=== PATIENT | male | born 1930 | race Caucasian/White ===

== ENCOUNTER 2018-04-26 01:49 | Inpatient (IN) | payer MEDICARE ==
[2018-04-26 02:24] LABS: #Eosinphils 0.1 thou/uL (0.0-0.7); #Lymphocytes 0.6 thou/uL (1.20-3.40); #Monocytes 0.4 thou/uL (0.11-0.59); #Neutrophils 2.9 thou/uL (1.40-6.50); %Basophils 0.1 % (0.0-1.0); %Eosinophils 2.5 % (0.0-10.0); %Lymphocytes 15.8 % (21.0-51.0); %Monocytes 9.8 % (0.0-10.0); %Neutrophils 71.8 % (42.0-75.0); Hemoglobin 9.7 g/dL (14.0-18.0); Mean Corpuscular HGB CONC 30.3 g/dL (32.0-36.0); Mean Corpuscular Hemoglobin 28.4 pg (27.0-31.0); Mean Platelet Volume 7.7 fL (7.4-10.4); Platelet Count 299 thou/uL (130-400); White Blood Cell (WBC) Count 4.1 thou/uL (4.8-10.8)
[2018-04-26 02:30] LABS: INR-International Normal Ratio 1.2; PTT 41.1 SEC (22.9-36.1)
[2018-04-26 02:44] LABS: Acetaminophen Less than 6.0 mcg/mL (10.0-30.0); Alcohol Less than 10 mg/dL (Less than 10); CK (CPK) 48 U/L (30-200); Salicylate Less than 8.0 mg/dL (15.0-30.0)
[2018-04-26 02:46] LABS: ALT (SGPT) 18 U/L (8-55); AST (SGOT) 28 U/L (5-34); Albumin 3.4 g/dL (3.4-4.8); Alkaline Phosphatase 68 U/L (40-150); Anion Gap 12 mmol/L (10-20); BUN (Urea Nitrogen) 14 mg/dL (8.4-25.7); Bilirubin, Total 0.7 mg/dL (0.2-1.2); Calc. Creatinine Clearance 0 mL/min (70-130); Calcium 8.9 mg/dL (7.8-10.44); Carbon Dioxide 27 mmol/L (23-31); Chloride 106 mmol/L (98-107); Estimated GFR-MDRD 87; Globulin 2.7 g/dL (2.4-3.5); Glucose 97 mg/dL (83-110); Potassium 4.3 mmol/L (3.5-5.1); Protein, Total 6.1 g/dL (5.8-8.1); Sodium 141 mmol/L (136-145)
[2018-04-26 03:06] LABS: CKMB 3.2 ng/mL (0-6.6)
--- NOTE | 2018-04-26 07:32 | RAD ---
SINGLE VIEW OF THE CHEST: Comparison: 04-26-10 History: Altered mental status. FINDINGS: Single view of the chest shows an enlarged cardiomediastinal silhouette. The pacemaker is unchanged i n position. Opacity is seen projecting over the right thorax which likely represents a moderate layer ing pleural effusion. IMPRESSION: Moderate right pleural effusion. POS: [facility]
[2018-04-26 07:34] LABS: Bilirubin Negative (Negative); Blood, Urine Negative (Negative); Clarity CLEAR (Clear); Glucose, Urine (Dipstick) Negative (Negative); Leukocyte Negative (Negative); Nitrite Negative (Negative); Protein, Urine (Dipstick) Negative (Neg-Trace); Specific Gravity, Urine 1.037 (1.002-1.036)
[2018-04-26 07:46] LABS: Medtox Reader # READER 1
[2018-04-26] MEDS ORDERED: ISOVUE-370 76%-LOCM 1 ML ONE (07:46)
[2018-04-26 07:47] LABS: Amphetamine Not Detected (NotDetected); Barbiturates Screen Not Detected (NotDetected); Benzodiazepine Screen Detected (NotDetected); Cocaine Metabolite Screen Not Detected (NotDetected); Medtox Control Line Valid? VALID (VALID); Methadone Not Detected (NotDetected); Methamphetamine Not Detected (NotDetected); Opiate Screen Not Detected (NotDetected); Oxycodone Screen Not Detected (NotDetected); Phencyclidine (PCP) Not Detected (NotDetected); THC/Cannabinoid Screen Not Detected (NotDetected); Tricyclic Screen Not Detected (NotDetected)
--- NOTE | 2018-04-26 08:14 | CT ---
PRELIMINARY REPORT/[facility]/EMERGENTY AFTER-HOURS PROCEDURE CT Head Without Contrast EXAM DATE/TIME: 04/26/2018 2:58 AM CLINICAL HISTORY: 88 years old, male; Injury or trauma; Fall; Initial encounter; Abrasion; Not specified; Patient HX: E r 9; M88 presents to the ed via ems for evaluation of fall from a seated position while [facility] staff was getting him out of bed to change his briefs around 01: 30. Ems reports PT. Is feeling fatig ued but took sleeping meds before bed. PT. Arrived on backboard and c-collar in place. Per ems, PT di d not have loc. Pt's baseline mental status is unknown; PT is not answering questions in the ed at th is time. TECHNIQUE: Axial computed tomography images of the head/brain without contrast. COMPARISON: No relevant prior studies available. FINDINGS: Brain: Scattered areas of hypoattenuation, likely chronic small vessel ischemic change, demyelination , or gliosis. There is parenchymal atrophy. Ventricles: Normal. Bones/joints: Normal. Sinuses: Minimal ethmoid and right maxillary sinus disease. Mastoid air cells: Normal as visualized. Soft tissues: Left frontal soft tissue swelling/contusion. Vasculature: Atherosclerotic vascular calcifications. IMPRESSION: 1. No acute intracranial abnormality. 2. Left frontal soft tissue swelling/contusion. Thank you for allowing us to participate in the care of your patient. Dictated and Authenticated by: Jd Long MD 04/26/2018 3:34 AM Central Time ([place] & [place]) FINAL REPORT EMERGENT AFTER HOURS CT OF THE BRAIN WITHOUT CONTRAST: FINDINGS/IMPRESSION: I agree with the findings and impression given in the preliminary report per [facility] physician. No evide nce of acute intracranial abnormality. POS: [facility]
--- NOTE | 2018-04-26 08:17 | CT ---
PRELIMINARY REPORT/[facility]/EMERGENTY AFTER-HOURS PROCEDURE CT Cervical Spine Without Contrast EXAM DATE/TIME: 04/26/2018 2:56 AM CLINICAL HISTORY: 88 years old, male; Injury or trauma; Fall; Initial encounter; Abrasion; Patient HX: Er 9; M88 presen ts to the ed via ems for evaluation of fall from a seated position while [facility] staff was getti ng him out of bed to change his briefs around 01: 30. Ems reports PT. Is feeling fatigued but took sl eeping meds before bed. PT. Arrived on backboard and c-collar in place. Per ems, PT did not have loc. Pt's baseline mental status is unknown; PT is not answering questions in the ed at this time. TECHNIQUE: Axial computed tomography images of the cervical spine without intravenous contrast. Coronal and sagi ttal reformatted images were created and reviewed. COMPARISON: No relevant prior studies available. FINDINGS: Vertebrae: Straightening of normal cervical spine lordosis, likely secondary to degenerative changes and/or muscular spasm. Multilevel bilateral facet arthropathy. Degenerative changes of the atlantoaxi al articulation. Discs/Spinal canal/Neural foramina: Multilevel degenerative disc disease. Posterior disc osteophyte c omplex at the C6-7 level causes ventral thecal sac indentation. Left C3-4, bilateral C5-6, and left C 6-7 neural foraminal narrowing. Soft tissues: Normal. Lungs: Visualized left lung apex is unremarkable. Pleural space: Pleural fluid within the right thorax. Vasculature: Atherosclerotic vascular calcifications. IMPRESSION: 1. No acute fracture. 2. Straightening of normal cervical spine lordosis, likely secondary to degenerative changes and/or m uscular spasm. 3. Pleural fluid within the right thorax. Thank you for allowing us to participate in the care of your patient. Dictated and Authenticated by: Jd Long MD 04/26/2018 3:36 AM Central Time ([place] & [place]) FINAL REPORT EMERGENCY AFTER HOURS CT CERVICAL SPINE WITHOUT CONTRAST: FINDINGS/IMPRESSION: I agree with the findings and impression given in the preliminary report per [facility] physician. Degenera tive changes of the cervical spine without acute osseous abnormality. POS: [facility]
--- NOTE | 2018-04-26 08:24 | CT ---
PRELIMINARY REPORT/[facility]/EMERGENTY AFTER-HOURS PROCEDURE CT Chest With Contrast EXAM DATE/TIME: 04/26/2018 3:02 AM CLINICAL HISTORY: 88 years old, male; Injury or trauma; Fall; Initial encounter; Blunt; Generalized; Blunt trauma (cont usions or hematomas); Patient HX: Er 9; M88 presents to the ed via ems for evaluation of fall from a seated position while skilled nursing staff was getting him out of bed to change his briefs around 01: 30. Ems reports PT. Is feeling fatigued but took sleeping meds before bed. PT. Arrived on backboard and c-collar in place. Per ems, PT did not have loc. Pt's baseline mental status is unknown ; PT is not answering questions in the ed at this time. TECHNIQUE: Axial computed tomography images of the chest with intravenous contrast. Coronal and sagittal reformatted images were created and reviewed. COMPARISON: No relevant prior studies available. FINDINGS: Tubes, catheters and devices: Left subclavian transvenous pacemaker in place. Lungs: See Pleural Space Finding. Pleural space: Large-sized right pleural effusion, with associated posterior atelectasis. Small left pleural effusion with associated posterior atelectasis. Heart: Extensive 3 vessel coronary artery atherosclerotic disease. Mild four-chamber cardiac enlargem ent. Aorta: Atherosclerotic seated the thoracic aorta, without aneurysm or dissection. Lymph nodes: No pathologically-enlarged lymph nodes. Bones/joints: Degenerative changes of the visualized glenohumeral and acromioclavicular joints. Multilevel thoracic spine degenerative changes. Soft tissues: Normal. IMPRESSION: 1. Large-sized right pleural effusion, with associated posterior atelectasis. 2. Small left pleural effusion with associated posterior atelectasis. CT Abdomen and Pelvis With Contrast EXAM DATE/TIME: 04/26/2018 3:02 AM CLINICAL HISTORY: 88 years old, male; Injury or trauma; Fall; Initial encounter; Blunt; Generalized; Blunt trauma (cont usions or hematomas); Patient HX: Er 9; M88 presents to the ed via ems for evaluation of fall from a seated position while skilled nursing staff was getting him out of bed to change his briefs around 01: 30. Ems reports PT. Is feeling fatigued but took sleeping meds before bed. PT. Arrived on backboard and c-collar in place. Per ems, PT did not have loc. Pt's baseline mental status is unknown ; PT is not answering questions in the ed at this time. TECHNIQUE: Axial computed tomography images of the abdomen and pelvis with intravenous contrast. Coronal and sagittal reformatted images were created and reviewed. COMPARISON: No relevant prior studies available. FINDINGS: Lower thorax: No acute findings. ABDOMEN: Liver: Normal. Gallbladder and bile ducts: Normal. Pancreas: Normal. Spleen: Splenic calcification, compatible with prior granulomatous disease. Adrenals: Normal. Kidneys and ureters: 3.9 x 3.6 cm peripherally hyperdense cystic structure arising from the midpole o f the right kidney posteriorly, possibly complex cyst, although carcinoma not excluded. Stomach and bowel: Surgical changes of prior partial left colectomy, with a lower quadrant colostomy. Colonic diverticulosis. Appendix: No evidence of appendicitis. PELVIS: Bladder: Unremarkable as visualized. Reproductive: Unremarkable as visualized. Subperitoneal space: Small amount of presacral free fluid. ABDOMEN and PELVIS: Intraperitoneal space: Normal. No free air. No significant fluid collection. Bones/joints: Degenerative changes of the hips and sacroiliac joints. Multilevel lumbar spine degener ative changes. Soft tissues: Small fat containing umbilical hernia. Vasculature: Atherosclerotic disease of the abdominal aorta and iliac arteries. Lymph nodes: Normal. No enlarged lymph nodes. IMPRESSION: 1. No acute abdominal or pelvic abnormality. 2. 3.9 x 3.6 cm peripherally hyperdense cystic structure arising from the midpole of the right kidney posteriorly, possibly complex cyst, although carcinoma not excluded. Recommend comparison to previou s studies if available. If unavailable, recommend dedicated renal ultrasound, CT, or MRI for further evaluation. Thank you for allowing us to participate in the care of your patient. Dictated and Authenticated by: Jd Long MD 04/26/2018 3:41 AM Central Time ([place] & [place]) FINAL REPORT: CT OF THE CHEST WITH CONTRAST CT OF THE ABDOMEN AND PELVIS WITH CONTRAST LIMITED CT OF THE THORACIC AND LUMBOSACRAL SPINES WITH CONTRAST: Technique: 1. Multiple contiguous axial images were obtained in a CT of the chest with contrast. Coronal reforma ts were performed. 2. Multiple contiguous axial images were obtained in a CT of the abdomen and pelvis with contrast. Co mary reformats were performed. 3. Limited CT of the thoracic and lumbosacral spine were performed. Sagittal and coronal reformats we re created based off images obtained in the chest, abdomen, and pelvic CTs. FINDINGS/IMPRESSION: I agree with the findings and impression given in the preliminary report via [facility] physician. 1. There is a large right pleural effusion with adjacent atelectasis. 2. There is a cystic mass in the right kidney which may represent a complex cyst. This lesion is a Tim sniak 2S lesion and should be followed in 3-6 months to ensure stability. 3. No evidence of acute intraabdominal/pelvic abnormality. 4. No evidence of acute osseous abnormality of the thoracic and lumbosacral spine. POS: [facility]
--- NOTE | 2018-04-26 08:36 | HP ---
PRIMARY CARE PHYSICIAN: Dr. Lubin. CHIEF COMPLAINT: Fall from a chair in the intermediate. HISTORY OF PRESENT ILLNESS: The history of present illness is taken from the patient's , who is at the bedside as the patient has advanced dementia and is unable to give any history. The patient is an 88-year-old gentleman, who has atrial fibrillation, hypertension, and was recently hospitalized a couple of weeks ago at [facility] for ruptured diverticulum. Prior to that he had been living in a nursing facility, [facility] for about 2 months after being hospitalized at [facility] in which the patient's said it was a fairly extensive infection due to the diverticulitis. He had to have surgery and had a colostomy placed and then [facility]. He has been there for about 2 weeks. It was reported that he fell from a seated position and fell with face first and this is the reason that he was brought to the emergency room. In the ER, he had a CT scan of the head, which was negative. However, it was noted on chest x-ray he had an almost complete opacification of the right lung. A CT scan was then obtained and it was found that he had a large right pleural effusion with some adjacent atelectasis and he is being admitted for further evaluation. The patient's says that other than having the fall, she really did not notice any problems. He only once said that he was hurting all over, but he has not had any cough or congestion. No fever or chills. His appetite has been fairly consistent, but she does note about a 50-pound weight loss over the last year. He has had no nausea, no vomiting or diarrhea that she can tell. He does tend to be extremely restless and she says very bad sundowning syndrome, but otherwise no complaints. She also notes that his primary care physician, Dr. Lubin recently took him off Coumadin, which he had been on for years. REVIEW OF SYSTEMS: This is unobtainable as the patient has advanced dementia. PAST MEDICAL HISTORY: The past medical history is taken from the patient's as well as review of the electronic records. His last hospitalization here at our facility being in 2010, and an H and P done by Dr. Fela Mccarthy. The past medical history includes coronary artery disease, hypertension, hyperlipidemia, atrial fibrillation, chronic diastolic heart failure, recent diverticulitis with rupture, and dementia. PAST SURGICAL HISTORY: He has had a pacemaker placed, coronary stents. He has had several cardioversions for atrial fibrillation and recently had surgery for the diverticulum with rupture and has had a colostomy placed. ALLERGIES: TO LEXAPRO AND LISINOPRIL, WHICH CAUSES ANGIOEDEMA. AMIODARONE, WHICH ALSO CAUSES ANGIOEDEMA AND SEVERE FACIAL SWELLING. SOCIAL HISTORY: He is . He has a [id number] smoking. He used to drink occasionally. His code status is do not resuscitate according to his at the bedside. FAMILY HISTORY: Unknown. CURRENT MEDICATIONS: These are taken from the ER records include; 1. Amlodipine 2.5 mg daily. 2. Iron sulfate 325 mg daily. 3. Levothyroxine 50 mcg daily. 4. Lorazepam 0.5 mg once a day. 5. Melatonin 3 mg daily. 6. Seroquel 25 mg daily. 7. once a day. 8. Toprol-XL 50 mg daily. PHYSICAL EXAMINATION: VITAL SIGNS: Blood pressure is 167/92, heart rate 85, respiratory rate of 16, and temperature 96.8 and that was rectally. GENERAL: He is well developed and well nourished. He appears to be in no acute distress. HEENT: The patient has a swelling over the left forehead and roman catholic, slightly bruised. His pupils are equal and reactive. Throat, he has no erythema. Slightly poor dentition. NECK: There is no adenopathy. No bruits. LUNGS: Essentially clear to auscultation. There are no wheezing, no rales. He did have some decreased breath sounds on the right. CARDIOVASCULAR: He had a normal S1 and S2. I did not hear an S3 or S4. No murmurs, clicks, or rubs. ABDOMEN: Soft. It is nontender and nondistended. Positive for bowel sounds. The colostomy site is good. He does have an open area in the mid abdomen, which was dressed. EXTREMITIES: There is no clubbing or cyanosis. No edema. NEUROLOGIC: Grossly is intact with his muscle strength 5/5 in both his upper and lower extremities. SKIN AND INTEGUMENT: No skin changes. No rash. LABORATORY RESULTS: The INR is 1.2. White blood cell count 4.1, hemoglobin 9.7, hematocrit is 32, and platelet count is 299. Chemistry; sodium 141, potassium 4.3, chloride is 106, CO2 is 27, BUN of 14, creatinine 0.84, and glucose is 97. Troponin 0.058. ASSESSMENT AND PLAN: This is a pleasant 88-year-old gentleman, who presents to the emergency room after having a fall in the alf facility. He was found to have a fairly large right pleural effusion and the etiology right now is unclear. He will be admitted as I suspect it will take more than 2 midnights to discern the etiology of his pleural effusion. We will start him empirically on the antibiotics since he has had a recent fairly severe infection with regard to the diverticulitis. Pulmonology will be consulted as we may require thoracentesis for diagnostic purposes. We will also request his records from [facility] to see if he has had a recent echo as he has a history of heart failure and this could be related to heart failure. 1. Chronic atrial fibrillation. His heart rate is currently controlled. His tells me he is no longer on Coumadin and would not like for him to be restarted on anticoagulation. She would not like for him to be started. 2. Hypertension. Need to restart his home medications and place him on p.r.n. medications as needed and further recommendations will be based on his clinical course. Job ID: [id number]
[2018-04-26] MEDS ORDERED: Lidocaine 1% PF 5 ML VIAL ONE (10:03)
[2018-04-26 10:30] LABS: Troponin I 0.042 ng/mL (< 0.028)
[2018-04-26 10:46] LABS: BF Color Red; Body Fluid Source Thoracentesis Fluid; Clarity Cloudy/Turbid (Clear); RBC Background Count 0.003; Tube # 3
[2018-04-26 10:48] LABS: RBC Count-Automated 32000 /cumm; WBC/NonHematic-Auto 1160 /cumm
--- NOTE | 2018-04-26 10:56 | OP ---
DATE OF PROCEDURE: 04/26/2018 PROCEDURE PERFORMED: Thoracentesis. INDICATION: Pleural effusion, right side, etiology unclear. DESCRIPTION OF PROCEDURE: After informed consent from the , the right posterior thorax was cleaned with chlorhexidine, 1% lidocaine infiltrated into the right ninth intercostal space in the midscapular line, and the pleural cavity was entered in, 20 mL of sanguinous fluid was removed. Thereafter, using 8-Bulgarian catheter, total of 800 mL was removed without any difficulty. Pleural effusion sent for appropriate studies including cytology and culture. The patient tolerated the procedure well. Job ID: [id number]
[2018-04-26 11:03] LABS: Fluid, Triglycerides 12 mg/dL (Not Available); Pleural Fluid, Amylase Less than 30 U/L (Not Available); Pleural Fluid, Glucose 76 mg/dL; Pleural Fluid, LDH 267 U/L (Not Available); Pleural Fluid, Protein 2.5 g/dL
--- NOTE | 2018-04-26 11:04 | CON ---
DATE OF CONSULTATION: 04/26/2018 HISTORY OF PRESENT ILLNESS: This is an 88-year-old demented gentleman from a local care home. He came in last night after he sustained a fall on his face as per the who is at the bedside. He just recently left [facility], where he underwent a surgery with colostomy for perforated diverticulitis. He is unable to give any history. His says the patient has never smoked, prior history of TB, pneumonia, or bronchial asthma. PAST MEDICAL HISTORY: Pertinent mainly for cardiac issues, coronary artery disease, hypertension, hyperlipidemia, atrial fibrillation, and dementia. PREVIOUS SURGERIES: Pacemaker, coronary artery stents, recent lap colostomy. HOME MEDICINE: Now includes apparently; 1. Amlodipine 2.5. 2. Iron 325. 3. Synthroid 50. 4. Ativan p.r.n. 5. Melatonin 3 mg. 6. Seroquel 25. 7. Toprol-XL 50. SOCIAL HISTORY: Otherwise unremarkable. REVIEW OF SYSTEMS: Otherwise unremarkable. Difficult to get. PHYSICAL EXAMINATION: VITAL SIGNS: Saturations 100% supplemental oxygen, pulse is 80, blood pressure . CHEST: Decreased breath sounds on the right lung. Left lung unremarkable. CARDIAC: Normal S1 and S2. No gallops. ABDOMEN: No masses. CAT scan shows a large pleural effusion. White count 4000, hemoglobin and hematocrit 9 and 32, platelet count 299. Lytes are normal. BNP is 2451. IMPRESSION: Dementia, right pleural effusion, etiology unclear, but probably secondary to congestive heart failure, recent lap colostomy, diastolic dysfunction, advanced age, elevated BNP. PLAN: We will do diagnostic thoracentesis. Further recommendation as above. We will follow consultation note, 70 minutes, 50% direct patient care. Job ID: [id number]
[2018-04-26 11:20] LABS: BF Segmented Neutrophils 26 %; Cell Count Non Hematic 46 %; Lymphocytes 28 %
--- NOTE | 2018-04-26 11:20 | RAD ---
PORTABLE AP CHEST: Date: 04/26/18 HISTORY: Patient fell from seated position. Post thoracentesis. COMPARISON: CT thorax on 04/26/18, as well as chest x-ray on 04/26/18 obtained at 0220 hours. FINDINGS: There has been interval decrease in the large layering right pleural effusion with residual pleural f luid remaining on the right. No right-sided pneumothorax is present. The left lung remains clear. Car diac silhouette is magnified by projection, but is mildly enlarged. Dual lead left subclavian cardiac pacemaking device remains in place. No other interval change. IMPRESSION: 1. Interval decrease in right pleural effusion without evidence of a pneumothorax. 2. Left lung is clear. 3. Mild cardiomegaly. POS: [facility]
[2018-04-26] MEDS ORDERED: Ziprasidone 20 MG CAP PO PRN (13:16)
[2018-04-26] MEDS ORDERED: Enoxaparin Sodium 30 MG/0.3 ML SYRINGE SC SCH ×2 (13:16→14:30)
[2018-04-26] MEDS ORDERED: Famotidine 20 MG TAB PO SCH ×3 (13:16→21:00)
[2018-04-26] MEDS ORDERED: Acetaminophen 325 MG TAB PO PRN (13:16)
[2018-04-26] MEDS ORDERED: hydrALAZINE 20 MG/ML VIAL SLOW IVP PRN (13:16)
[2018-04-26] MEDS ORDERED: VANCOMYCIN IVPB PRN (13:31)
[2018-04-26] MEDS ORDERED: Vancomycin HCl 1 GM in Premix Bag 1 BAG IVPB SCH ×2 (15:00→20:00)
[2018-04-26] MEDS ORDERED: Famotidine 20 MG TAB ONE (15:34)
[2018-04-26] MEDS: Piperacillin/Tazobactam 3.375 GM in Sodium Chloride 0.9% 100 ML IVPB SCH ×2 (18:16→20:21)
[2018-04-26 19:20] VITALS: BMI 21.3
[2018-04-27] MEDS: Piperacillin/Tazobactam 3.375 GM in Sodium Chloride 0.9% 100 ML IVPB SCH ×2 (03:24→11:02)
[2018-04-27 06:37] LABS: #Eosinphils 0.1 thou/uL (0.0-0.7); #Lymphocytes 0.5 thou/uL (1.20-3.40); #Monocytes 0.3 thou/uL (0.11-0.59); #Neutrophils 3.6 thou/uL (1.40-6.50); %Basophils 0.3 % (0.0-1.0); %Eosinophils 1.9 % (0.0-10.0); %Lymphocytes 10.6 % (21.0-51.0); %Monocytes 7.4 % (0.0-10.0); %Neutrophils 79.7 % (42.0-75.0); Hemoglobin 10.3 g/dL (14.0-18.0); Mean Corpuscular HGB CONC 30.6 g/dL (32.0-36.0); Mean Corpuscular Hemoglobin 28.8 pg (27.0-31.0); Mean Corpuscular Volume 93.9 fL (78.0-98.0); Mean Platelet Volume 7.3 fL (7.4-10.4); Platelet Count 327 thou/uL (130-400); RBC Distribution Width 14.7 % (11.5-14.5); Red Blood Cell (RBC) Count 3.58 mill/uL (4.70-6.10); White Blood Cell (WBC) Count 4.5 thou/uL (4.8-10.8)
[2018-04-27 06:55] LABS: Anion Gap 13 mmol/L (10-20); BUN (Urea Nitrogen) 9 mg/dL (8.4-25.7); Calc. Creatinine Clearance 64 mL/min (70-130); Calcium 8.9 mg/dL (7.8-10.44); Carbon Dioxide 25 mmol/L (23-31); Chloride 107 mmol/L (98-107); Estimated GFR-MDRD Greater than 90; Glucose 97 mg/dL (83-110); Potassium 3.5 mmol/L (3.5-5.1); Sodium 141 mmol/L (136-145)
[2018-04-27 08:05] VITALS: BP 154/72; TEMP 97.5
[2018-04-27] MEDS ORDERED: Non-Formulary Item 1 EACH (Sertraline Hcl [Sertraline Hcl] 50 MG) PO SCH (09:00)
[2018-04-27] MEDS ORDERED: Enoxaparin Sodium 30 MG/0.3 ML SYRINGE SC SCH (09:00)
[2018-04-27] MEDS ORDERED: Non-Formulary Item 1 EACH (Losartan Potassium [Losartan Potassium] 50 MG) PO SCH (09:00)
[2018-04-27] MEDS ORDERED: Losartan 25 MG TAB PO SCH (09:00)
[2018-04-27] MEDS ORDERED: Levothyroxine Sodium 50 MCG TAB PO SCH (09:00)
[2018-04-27] MEDS ORDERED: Non-Formulary Item 1 EACH (Amlodipine Besylate [Amlodipine Besylate] 2.5 MG) PO SCH (09:00)
[2018-04-27] MEDS ORDERED: Amlodipine 5 MG TAB PO SCH (09:00)
--- NOTE | 2018-04-27 09:52 | PRG ---
DATE OF SERVICE: 04/27/2018 SUBJECTIVE: This morning, he is awake, alert, and responsive, less short of breath. OBJECTIVE: VITAL SIGNS: Sats are 95% on room air, respiratory rate 18, temperature 97, and blood pressure 154/72. CHEST: Decreased breath sounds in right lung, left unremarkable. CARDIAC: Normal S1 and S2. No gallops. ABDOMEN: No masses. Right-sided bloody effusion, predominantly transudate mixed lymphocytic neutrophilic predominance. Cytology negative. Culture so far negative. IMPRESSION: Right pleural effusion, parapneumonic versus congestive heart failure. The numbers are really transudate. PLAN: Switch over to oral antibiotics, can be discharged any time. Follow up in the office as needed. Job ID: [id number]
--- NOTE | 2018-04-27 10:02 | PDOC.PN ---
- Subjective Encounter Start Date: 04/27/18 Encounter Start Time: 10:00 Mr. Clayton was seen today in follow-up of right pleural effusion. He looks much better today. He is sitting up in a chair, smiling. His daughter is at the bedside. She says she believes he would do better at the detention due to his dementia. - Objective Resuscitation Status - Order Detail: 04/26/18 07:46 Resuscitation Status Routine Resuscitation Status: DNAR: NO Resuscitation Discussed with: Patient's MAR Reviewed: Yes Vital Signs & Weight: Vital Signs (12 hours) Temp Pulse Resp BP BP BP Pulse Ox 04/27/18 07:58 97.5 F L 71 18 154/72 H 95 04/27/18 03:29 60 190/91 H 04/27/18 03:13 96.5 F L 70 14 190/91 H 97 04/27/18 00:00 161/71 H Weight Weight 136 lb 3.2 oz Result Diagrams: 04/27/18 05:54 04/27/18 05:54 Phys Exam - Physical Examination HEENT: PERRLA Respiratory: no wheezing, no rales, no rhonchi, clear to auscultation bilateral Cardiovascular: RRR, no significant murmur, no rub Gastrointestinal: soft, non-tender, positive bowel sounds Musculoskeletal: no edema, pulses present Dx/Plan (1) Pleural effusion, right Code(s): J90 - PLEURAL EFFUSION, NOT ELSEWHERE CLASSIFIED Status: Acute (2) Dementia Code(s): F03.90 - UNSPECIFIED DEMENTIA WITHOUT BEHAVIORAL DISTURBANCE Status: Acute (3) Atrial fibrillation Code(s): I48.91 - UNSPECIFIED ATRIAL FIBRILLATION Status: Acute (4) Hypertension Code(s): I10 - ESSENTIAL (PRIMARY) HYPERTENSION Status: Acute - Plan * Right Pleural Effusion- he has improved after thorocentesis * Discussed with Dr. Jimenez- he can follow-up with the results of the thorocentesis as an outpatient * He is stable for discharge back to the detention.
[2018-04-27] MEDS ORDERED: Prevnar 13-Val Conj/PF 0.5 ML SYRINGE IM ONE (21:00)
[2018-04-27] MEDS ORDERED: Melatonin 3 MG TAB PO SCH (21:00)
[2018-04-27] MEDS ORDERED: Lorazepam 0.5 MG TAB PO SCH (21:00)
--- NOTE | 2018-04-27 21:31 | DIS ---
DATE OF ADMISSION: 04/26/2018 DATE OF DISCHARGE: 04/27/2018 PRIMARY CARE PHYSICIAN: Dr. Gallito Lubin. DISCHARGE DISPOSITION: Home. PRIMARY DISCHARGE DIAGNOSES: 1. Acute right pleural effusion. 2. Fall. 3. Chronic atrial fibrillation, not on anticoagulation. 4. Hypothyroidism. 5. Hypertension. 6. Chronic diastolic heart failure. 7. Recent ruptured diverticulitis. CODE STATUS: DNAR. ALLERGIES: LISINOPRIL. PROCEDURES DONE DURING THE ADMISSION: The patient had a CT scan of the brain showing no acute intracranial abnormality. There was a left frontal soft tissue swelling or contusion. CT of the cervical spine showing no acute fracture. There was some straightening of the cervical spine, likely due to DJD. The patient had a CT scan of the chest, abdomen and pelvis. There was noted a large right-sided pleural effusion with some posterior atelectasis, small left pleural effusion. There was a right cystic kidney mass, which may represent a complex cyst. HOSPITAL COURSE: Mr. Clayton is a pleasant 88-year-old gentleman, who presented to the emergency room after he had fallen at the intermediate. As a precaution, they sent him to the emergency room for evaluation. He was found to have a large right pleural effusion. He was evaluated by Pulmonology and underwent thoracentesis. 800 mL of fluid was removed. It was described as being somewhat bloody and therefore, there was some concern that it could be a traumatic effusion. However, after having no fluid removed, the patient seem much improved. He was very awake, alert, sitting up in a chair eating. He has advanced dementia and his family was concerned that he would have significant sundowning while in the hospital and therefore, they preferred for him to wait for the results of the thoracentesis at the intermediate, where he was more familiar. He says he was clinically stable and it was unlikely that this was an infectious or parapneumonic effusion. There was no fever, no cough, no congestion. His vital signs were all stable. No elevation in white blood cell count. He was discharged back to the [facility], and his family will call Dr. Jimenez's office on Monday to get the results of the thoracentesis. Job ID: [id number]
== END 2018-04-27 15:14 | DRG 292 ==
LOC: ERS 01:49 → ERHOLD 07:09 → 2NO 17:39
PROVIDERS: ADMIT Hospitalist; ATTEND Hospitalist
PROC: 0W993ZZ Drainage of Right Pleural Cavity, Percutaneous Approach (ICD-10-PCS; principal; 2018-04-26)
DX: I11.0 Hypertensive heart disease with heart failure (principal); J91.8 Pleural effusion in other conditions classified elsewhere; I25.10 Atherosclerotic heart disease of native coronary artery without angina pectoris; I50.32 Chronic diastolic (congestive) heart failure; Z66 Do not resuscitate; E78.5 Hyperlipidemia, unspecified; F03.90 Unspecified dementia, unspecified severity, without behavioral disturbance, psychotic disturbance, mood disturbance, and anxiety; I48.2 Chronic atrial fibrillation; E03.9 Hypothyroidism, unspecified; F17.210 Nicotine dependence, cigarettes, uncomplicated; Z95.0 Presence of cardiac pacemaker; Z93.3 Colostomy status; Z88.8 Allergy status to other drugs, medicaments and biological substances; Z79.899 Other long term (current) drug therapy
CPT/HCPCS: 36415; 36416; 70450; 71045; 71260; 72125; 74177; 80048; 80053; 80306; 80307; 81003; 82150; 82274; 82550; 82553; 82945; 83605; 83615; 83880; 83986; 84157; 84478; 84484; 85025; 85060; 85610; 85730; 87070; 87086; 87116; 87205; 87206; 88112; 89051; 93005; J0360; J1642; J1650; J2001; J2543; J3370; J7050; Q9966